=== PATIENT | female | born 1960 | race Caucasian/White ===

== ENCOUNTER 2019-10-02 09:29 | Inpatient (IN) | payer MEDICARE ==
[~2019-10-02] VITALS: Ht 177.8 cm; Wt 95.0 kg
[~2019-10-02 09:29] MED LIST: CLON0.1T22 PO; HYDR25TA6 PO; LORA-446 PO; LOSA100T14 PO; PANT40TA3 PO; PROM12.56; SUCR1TAB33
--- NOTE | 2019-10-02 09:47 | NUR ---
PT BIB EMS FROM [place]. PT WITH C/O N/V X4 DAYS RUQ ABD PAIN 11/17. HX OF AUTOIMMUNE LIVER DISEASE, CARLOS JAZZY TEAR 2008. PT STATES SHE HAD A CT AT [facility] AND IT SHOWED "LIVER ISSUES" PT TO BP, CONT PULSE OX. BP ELEVATED AT TIME OF ARRIVAL 181/111, PT RETCHING, WILL RECHECK ER MD AWARE.
[2019-10-02] MEDS ORDERED: HYDROmorphone 1 MG/ML, 1ML INJ ONE ×2 (09:55→11:44)
[2019-10-02] MEDS ORDERED: LORazepam 2 MG/ML, 1ML ONE (09:56)
[2019-10-02] MEDS ORDERED: SODIUM CHLORIDE 0.9% 1,000ML IVBOLUS ONE (10:00)
[2019-10-02] MEDS ORDERED: SODIUM CHLORIDE FLUSH 10ML SYR IVF ONE (10:00)
[2019-10-02] MEDS ORDERED: LORazepam 2 MG/ML, 1ML IV ONE (10:00)
[2019-10-02] MEDS: HYDROmorphone 2 MG/ML, 1ML IVPush PRN ×4 (10:01→21:55)
[2019-10-02] MEDS ORDERED: PANTOPRAZOLE 80 MG in SODIUM CHLORIDE 0.9% 50 ML IVPB ONE (10:21)
[2019-10-02] MEDS ORDERED: PANTOPRAZOLE 80 MG in SODIUM CHLORIDE 0.9% 100 ML IV SCH (10:21)
[2019-10-02 10:27] LABS: BASOPHILS # (AUTO) 0.01 x10^3/uL (0-0.1); BASOPHILS % (AUTO) 0 % (0-1); EOSINOPHILS # (AUTO) 0.01 x10^3/uL (0-0.4); EOSINOPHILS % (AUTO) 0 % (1-7); LYMPHOCYTES % (AUTO) 23 % (22-44); MD NO; MEAN CORPUSCULAR HEMOGLOBIN 23.6 pg (27.0-34.8); MEAN CORPUSCULAR HGB CONC 31.2 g/dL (32.4-35.8); MEAN PLATELET VOLUME 8.4 fL (7.4-10.4); MONOCYTES # (AUTO) 0.74 x10^3/uL (0.2-0.8); MONOCYTES % (AUTO) 13 % (2-9); NEUTROPHILS % (AUTO) 64 % (42-75); PLATELET COUNT 214 x10^3/uL (130-400); RED BLOOD COUNT 4.03 x10^6/uL (3.82-5.3); RED CELL DISTRIBUTION WIDTH 16.6 % (9.6-15.2)
[2019-10-02 10:28] LABS: HCT (SEDRATE) 30.7 % (34.6-47.8)
[2019-10-02 10:30] LABS: INTERNATIONAL NORMALIZED RATIO 1.02 (0.93-1.1); PROTHROMBIN TIME 10.8 Seconds (9.6-11.5)
[2019-10-02] MEDS ORDERED: DIPHENHYDRAMINE 50 MG/ML, 1ML IVPush ONE (10:30)
[2019-10-02] MEDS ORDERED: methylPREDNISolone SOD SUCC 125 MG/2 ML IVPush ONE (10:30)
[2019-10-02] MEDS ORDERED: DIPHENHYDRAMINE 50 MG/ML, 1ML ONE (10:32)
[2019-10-02] MEDS ORDERED: methylPREDNISolone SOD SUCC 125 MG/2 ML ONE (10:32)
--- NOTE | 2019-10-02 10:32 | NUR ---
PT PREMEDICATED FOR CTA ABD. CT CALLED TO UPDATE.
[2019-10-02 10:34] LABS: ALANINE AMINOTRANSFERASE 45 U/L (12-78); ALBUMIN 3.5 g/dL (3.4-5.0); ANION GAP 7 mmol/L (5-15); C-REACTIVE PROTEIN, QUANT 0.09 mg/dL (0.02-0.49); CALCIUM 8.6 mg/dL (8.5-10.1); CHLORIDE 110 mmol/L (98-107); CREATININE 0.72 mg/dL (0.55-1.02)
[2019-10-02 10:37] LABS: ALKALINE PHOSPHATASE 141 U/L (45-117); BILIRUBIN,TOTAL 0.3 mg/dL (0.2-1.0); TOTAL PROTEIN 7.1 g/dL (6.4-8.2)
[2019-10-02] MEDS ORDERED: OMNIPAQUE 350 MG/ML, 100ML BOTTLE ONE (10:58)
[2019-10-02 11:42] LABS: % IRON SATURATION 4 % (20-55); IRON LEVEL 22 mcg/dL (50-170); TOTAL IRON BINDING CAPACITY 495 mcg/dL (250-450)
[2019-10-02 13:10] VITALS: BP 168/114
[2019-10-02] MEDS ORDERED: HYDROmorphone 2 MG/ML, 1ML IV ONE (14:30)
[2019-10-02] MEDS ORDERED: PROMETHAZINE 25 MG/ML, 1ML IM ONE (14:30)
[2019-10-02] MEDS ORDERED: hydrALAzine 20 MG/ML, 1ML IVPush PRN (15:00)
[2019-10-02] MEDS ORDERED: POLYETHYLENE GLYCOL 17 GM PACKET PO PRN (15:00)
[2019-10-02] MEDS ORDERED: ZOLPIDEM 5MG TABLET PO PRN (15:00)
[2019-10-02] MEDS ORDERED: PROMETHAZINE 25 MG/ML, 1ML IM PRN (15:00)
[2019-10-02] MEDS ORDERED: BISACODYL 10 MG SUPP PR PRN (15:00)
[2019-10-02] MEDS ORDERED: ACETAMINOPHEN 325 MG TABLET PO PRN (15:00)
[2019-10-02] MEDS: PANTOPRAZOLE 40 MG IV IVPush SCH (16:43)
[2019-10-02] MEDS: LORazepam 2 MG/ML, 1ML IVPush PRN ×2 (16:43→20:56)
[2019-10-02] MEDS: D5%-LR+KCL 20MEQ 1,000 ML IV SCH (16:48)
[2019-10-02] MEDS: CEFTRIAXONE PMX 1GM/50ML 50 ML IV SCH (16:59)
[2019-10-02 18:50] VITALS: BP 156/102
[2019-10-02 22:05] VITALS: BP 186/112
[2019-10-02] MEDS: LABETALOL 5MG/ML, 20ML IVPush PRN (22:13)
[2019-10-02 22:42] VITALS: BP 190/100
[2019-10-02] MEDS ORDERED: LABETALOL 5MG/ML, 20ML IVPush ONE (23:00)
[2019-10-03] MEDS: HYDROmorphone 2 MG/ML, 1ML IVPush PRN ×6 (00:58→21:17)
[2019-10-03 00:59] VITALS: BP 162/93
[2019-10-03] MEDS: LORazepam 2 MG/ML, 1ML IVPush PRN ×7 (02:01→21:57)
[2019-10-03] MEDS: D5%-LR+KCL 20MEQ 1,000 ML IV SCH ×3 (02:52→19:40)
[2019-10-03 03:23] LABS: BASOPHILS # (AUTO) 0.01 x10^3/uL (0-0.1); BASOPHILS % (AUTO) 0 % (0-1); EOSINOPHILS % (AUTO) 0 % (1-7); LYMPHOCYTES # (AUTO) 1.06 x10^3/uL (1-3.4); LYMPHOCYTES % (AUTO) 16 % (22-44); MD NO; MEAN CORPUSCULAR HEMOGLOBIN 23.2 pg (27.0-34.8); MEAN CORPUSCULAR HGB CONC 30.6 g/dL (32.4-35.8); MEAN PLATELET VOLUME 8.7 fL (7.4-10.4); MONOCYTES # (AUTO) 0.79 x10^3/uL (0.2-0.8); MONOCYTES % (AUTO) 12 % (2-9); NEUTROPHILS # (AUTO) 4.92 x10^3/uL (1.8-6.8); NEUTROPHILS % (AUTO) 73 % (42-75); PLATELET COUNT 214 x10^3/uL (130-400); RED BLOOD COUNT 3.81 x10^6/uL (3.82-5.3); RED CELL DISTRIBUTION WIDTH 17.3 % (9.6-15.2)
[2019-10-03 03:26] LABS: ALBUMIN 3.1 g/dL (3.4-5.0); ANION GAP 9 mmol/L (5-15); CALCIUM 8.2 mg/dL (8.5-10.1); CHLORIDE 107 mmol/L (98-107)
[2019-10-03 03:34] LABS: ALANINE AMINOTRANSFERASE 40 U/L (12-78); ALKALINE PHOSPHATASE 113 U/L (45-117); BILIRUBIN,TOTAL 0.2 mg/dL (0.2-1.0); CHOL/HDL RATIO 2.9; CHOLESTEROL, TOTAL 185 mg/dL (140-239); CREATININE 0.89 mg/dL (0.55-1.02); HDL CHOL % 34 % (28-40); HDL CHOLESTEROL (DIRECT) 63 mg/dL (40-60); LDL CHOLESTEROL,CALCULATED 106 mg/dL (54-169); LDL/HDL RATIO 1.7 (0.5-3.0); TOTAL PROTEIN 6.5 g/dL (6.4-8.2); TRIGLYCERIDES 80 mg/dL (50-200); VLDL CHOLESTEROL 16 mg/dL (0-25)
[2019-10-03] MEDS: PANTOPRAZOLE 40 MG IV IVPush SCH ×2 (05:07→14:57)
[2019-10-03] MEDS: LABETALOL 5MG/ML, 20ML IVPush PRN ×2 (07:48→20:26)
[2019-10-03 08:30] VITALS: BP 167/111
[2019-10-03] MEDS ORDERED: CHLORHEXIDINE 15 ML UDC ONE (10:22)
[2019-10-03] MEDS ORDERED: PROPOFOL 10 MG/ML, 20ML ONE (10:29)
[2019-10-03] MEDS: LABETALOL 5MG/ML, 20ML IV PRN ×4 (10:45→11:31)
[2019-10-03] MEDS ORDERED: hydrALAzine 20 MG/ML, 1ML ONE (10:53)
[2019-10-03] MEDS ORDERED: hydrALAzine 20 MG/ML, 1ML IV PRN (11:00)
[2019-10-03] MEDS ORDERED: PROMETHAZINE 25 MG/ML, 1ML IVPush PRN (11:00)
[2019-10-03] MEDS ORDERED: LORazepam 2 MG/ML, 1ML ONE (11:03)
[2019-10-03] MEDS ORDERED: HYDROmorphone 1 MG/ML, 1ML INJ ONE ×3 (11:03→11:44)
[2019-10-03] MEDS: HYDROmorphone 1 MG/ML, 1ML INJ IVPush PRN ×4 (11:05→11:38)
[2019-10-03] MEDS ORDERED: PROMETHAZINE 25 MG/ML, 1ML ONE (11:15)
[2019-10-03] MEDS ORDERED: ENALAPRILAT 1.25 MG/ML, 2ML ONE (11:40)
[2019-10-03] MEDS ORDERED: ENALAPRILAT 1.25 MG/ML, 2ML IV PRN (12:00)
[2019-10-03] MEDS ORDERED: IRON DEXTRAN IV PER PHARMACY IV ONE (15:30)
[2019-10-03] MEDS: CEFTRIAXONE PMX 1GM/50ML 50 ML IV SCH (15:33)
[2019-10-03] MEDS ORDERED: IRON DEXTRAN COMPLEX 25 MG in SODIUM CHLORIDE 0.9% 50 ML IV ONE (16:00)
[2019-10-03] MEDS ORDERED: IRON DEXTRAN COMPLEX 1,500 MG in SODIUM CHLORIDE 0.9% 250 ML IV ONE (16:00)
[2019-10-03 16:37] VITALS: BP 175/110
[2019-10-03] MEDS ORDERED: EPINEPHRINE 1 MG/ML, 1ML SQ PRN (17:00)
[2019-10-03 18:47] LABS: MICROSCOPIC INDICATED
[2019-10-03 20:17] VITALS: BP 164/101
[2019-10-03 21:20] VITALS: BP 158/97
[2019-10-04] VITALS: BP 172/102
[2019-10-04] MEDS: LABETALOL 5MG/ML, 20ML IVPush PRN ×5 (00:06→20:38)
[2019-10-04] MEDS: HYDROmorphone 2 MG/ML, 1ML IVPush PRN ×6 (00:12→15:54)
[2019-10-04] MEDS: LORazepam 2 MG/ML, 1ML IVPush PRN ×2 (02:21→10:51)
[2019-10-04 03:12] LABS: BASOPHILS # (AUTO) 0.02 x10^3/uL (0-0.1); BASOPHILS % (AUTO) 0 % (0-1); EOSINOPHILS # (AUTO) 0.01 x10^3/uL (0-0.4); EOSINOPHILS % (AUTO) 0 % (1-7); LYMPHOCYTES # (AUTO) 1.69 x10^3/uL (1-3.4); LYMPHOCYTES % (AUTO) 25 % (22-44); MD NO; MEAN CORPUSCULAR HEMOGLOBIN 23.9 pg (27.0-34.8); MEAN CORPUSCULAR HGB CONC 31.6 g/dL (32.4-35.8); MEAN PLATELET VOLUME 8.5 fL (7.4-10.4); MONOCYTES # (AUTO) 0.64 x10^3/uL (0.2-0.8); MONOCYTES % (AUTO) 9 % (2-9); NEUTROPHILS % (AUTO) 65 % (42-75); PLATELET COUNT 193 x10^3/uL (130-400); RED BLOOD COUNT 3.91 x10^6/uL (3.82-5.3); RED CELL DISTRIBUTION WIDTH 17.8 % (9.6-15.2)
[2019-10-04 03:23] LABS: ANION GAP 9 mmol/L (5-15); CALCIUM 7.5 mg/dL (8.5-10.1); CHLORIDE 109 mmol/L (98-107); CREATININE 1.04 mg/dL (0.55-1.02)
[2019-10-04] MEDS: D5%-LR+KCL 20MEQ 1,000 ML IV SCH (03:26)
[2019-10-04 07:27] VITALS: BP 166/113
[2019-10-04] MEDS: PANTOPRAZOLE 40MG TABLET PO SCH ×2 (08:49→18:02)
[2019-10-04] MEDS ORDERED: POTASSIUM CHLORIDE 20 MEQ TAB.ER.PRT PO ONE (10:00)
[2019-10-04] MEDS ORDERED: POTASSIUM CHLORIDE 40 MEQ in SODIUM CHLORIDE 0.9% 500 ML IV ONE (13:00)
[2019-10-04 14:15] VITALS: BP 181/133
[2019-10-04 15:03] VITALS: BP 183/135
[2019-10-04 16:25] VITALS: BP 177/119
[2019-10-04] MEDS: CEFTRIAXONE PMX 1GM/50ML 50 ML IV SCH (17:22)
[2019-10-04] MEDS: HYDROmorphone 2MG TABLET PO PRN ×2 (19:35→23:24)
[2019-10-04 20:51] VITALS: BP 152/95
[2019-10-05] MEDS: LORazepam 1MG TABLET PO PRN ×2 (04:29→10:15)
[2019-10-05] MEDS: HYDROmorphone 2MG TABLET PO PRN ×2 (04:29→10:16)
[2019-10-05 04:30] VITALS: BP 183/135
[2019-10-05] MEDS: LABETALOL 5MG/ML, 20ML IVPush PRN (04:32)
[2019-10-05 05:31] LABS: ANION GAP 8 mmol/L (5-15); CALCIUM 8.6 mg/dL (8.5-10.1); CHLORIDE 105 mmol/L (98-107)
[2019-10-05 05:32] LABS: CREATININE 0.74 mg/dL (0.55-1.02)
[2019-10-05 05:43] LABS: MEAN CORPUSCULAR HEMOGLOBIN 23.9 pg (27.0-34.8); MEAN CORPUSCULAR HGB CONC 31.6 g/dL (32.4-35.8); MEAN PLATELET VOLUME 8.6 fL (7.4-10.4); PLATELET COUNT 236 x10^3/uL (130-400); RED CELL DISTRIBUTION WIDTH 17.5 % (9.6-15.2)
[2019-10-05 06:15] LABS: BASOPHILS # (AUTO) 0.06 x10^3/uL (0-0.1); BASOPHILS % (AUTO) 1 % (0-1); EOSINOPHILS # (AUTO) 0.18 x10^3/uL (0-0.4); EOSINOPHILS % (AUTO) 4 % (1-7); LYMPHOCYTES # (AUTO) 0.88 x10^3/uL (1-3.4); LYMPHOCYTES % (AUTO) 17 % (22-44); MD SCAN; MONOCYTES # (AUTO) 0.55 x10^3/uL (0.2-0.8); MONOCYTES % (AUTO) 11 % (2-9); NEUTROPHILS # (AUTO) 3.44 x10^3/uL (1.8-6.8); NEUTROPHILS % (AUTO) 67 % (42-75)
[2019-10-05 07:28] VITALS: BP 152/81
[2019-10-05] MEDS: PANTOPRAZOLE 40MG TABLET PO SCH (10:15)
[2019-10-05] MEDS ORDERED: HYDROmorphone 2MG TABLET PO PRN (12:30)
[2019-10-05] MEDS ORDERED: LORazepam 1MG TABLET PO PRN (12:30)
[2019-10-05 12:53] LABS: HCT (SEDRATE) 33.9 % (34.6-47.8)
[2019-10-05] MEDS: CEFTRIAXONE PMX 1GM/50ML 50 ML IV SCH (13:00)
[2019-10-05 13:05] LABS: ALBUMIN 3.5 g/dL (3.4-5.0); C-REACTIVE PROTEIN, QUANT 0.66 mg/dL (0.02-0.49)
[2019-10-05 13:10] LABS: BILIRUBIN, DIRECT 0.1 mg/dL (0.1-0.2); BILIRUBIN,INDIRECT 0.4 mg/dL (0.0-2.0); BILIRUBIN,TOTAL 0.5 mg/dL (0.2-1.0); TOTAL PROTEIN 7.2 g/dL (6.4-8.2)
== END 2019-10-05 14:33 | disposition left against medical advice (07) | DRG 381 ==
LOC: ED 11:26 → EDIP 12:11 → 3N 12:45
PROVIDERS: ADMIT Internal Medicine; ATTEND Hospitalist
PROC: 0DB68ZX Excision of Stomach, Via Natural or Artificial Opening Endoscopic, Diagnostic (ICD-10-PCS; principal; 2019-10-03 09:30)
DX: K22.11 Ulcer of esophagus with bleeding (principal); N39.0 Urinary tract infection, site not specified; K29.71 Gastritis, unspecified, with bleeding; K74.3 Primary biliary cirrhosis; E61.1 Iron deficiency; D64.9 Anemia, unspecified; E87.6 Hypokalemia; I10 Essential (primary) hypertension; Z53.29 Procedure and treatment not carried out because of patient's decision for other reasons; Z88.5 Allergy status to narcotic agent; Z88.0 Allergy status to penicillin; Z88.8 Allergy status to other drugs, medicaments and biological substances; Z91.041 Radiographic dye allergy status; Z20.828 Contact with and (suspected) exposure to other viral communicable diseases; E78.5 Hyperlipidemia, unspecified; G89.29 Other chronic pain; K21.9 Gastro-esophageal reflux disease without esophagitis; K57.30 Diverticulosis of large intestine without perforation or abscess without bleeding; Z80.1 Family history of malignant neoplasm of trachea, bronchus and lung; Z80.3 Family history of malignant neoplasm of breast; Z82.5 Family history of asthma and other chronic lower respiratory diseases; Z87.11 Personal history of peptic ulcer disease; Z87.19 Personal history of other diseases of the digestive system; Z90.49 Acquired absence of other specified parts of digestive tract
CPT/HCPCS: 36415; 74174; 80048; 80053; 80061; 80076; 81001; 82728; 83540; 83550; 83605; 83690; 83735; 84100; 84443; 85014; 85018; 85025; 85610; 85651; 86140; 86850; 86900; 87086; 87635; 88305; 96361; 96365; G0378; J0696; J1170; J1750; J2550; J2704; J3480; Q9967; C9113; J1200; J2060; J2930; J7030; J7040; J7050

== ENCOUNTER 2019-10-29 22:57 | Emergency (ER) | payer MEDICARE ==
--- NOTE | 2019-10-29 23:09 | NUR ---
Patient BIB ambulance c/o RUQ abd pain and N/V x2 days. Vomitus is blood-tinged. Patient has a recent hx of Neha Munguia tear which she states is healing. Patient is in NAD. Respirations even and unlabored.
[2019-10-29] MEDS ORDERED: SODIUM CHLORIDE 0.9% 1,000ML IVBOLUS ONE (23:30)
[2019-10-29] MEDS ORDERED: PANTOPRAZOLE 40 MG IV IVPush ONE (23:30)
[2019-10-29] MEDS ORDERED: PROMETHAZINE 25 MG/ML, 1ML IM ONE (23:30)
[2019-10-29] MEDS ORDERED: PROMETHAZINE 25 MG/ML, 1ML ONE (23:42)
[2019-10-29] MEDS ORDERED: HYDROmorphone 1 MG/ML, 1ML INJ ONE (23:43)
[2019-10-30] MEDS: HYDROmorphone 2 MG/ML, 1ML IVPush PRN ×2 (00:09→01:26)
[2019-10-30] MEDS ORDERED: PANTOPRAZOLE 40 MG IV ONE (00:13)
[2019-10-30 00:35] LABS: ALANINE AMINOTRANSFERASE 132 U/L (12-78); ALBUMIN 3.5 g/dL (3.4-5.0); ANION GAP 7 mmol/L (5-15); CALCIUM 8.8 mg/dL (8.5-10.1); CHLORIDE 109 mmol/L (98-107); CREATININE 0.85 mg/dL (0.55-1.02)
[2019-10-30 00:37] LABS: ALKALINE PHOSPHATASE 175 U/L (45-117); BILIRUBIN,TOTAL 0.4 mg/dL (0.2-1.0)
[2019-10-30 00:56] LABS: MEAN CORPUSCULAR HEMOGLOBIN 26.7 pg (27.0-34.8); MEAN CORPUSCULAR HGB CONC 31.6 g/dL (32.4-35.8); MEAN CORPUSCULAR VOLUME 84.4 fL (80-100); MEAN PLATELET VOLUME 8.1 fL (7.4-10.4); PLATELET COUNT 167 x10^3/uL (130-400); RED CELL DISTRIBUTION WIDTH 25.5 % (9.6-15.2)
[2019-10-30] MEDS ORDERED: HYDROmorphone 1 MG/ML, 1ML INJ ONE ×2 (01:21→03:10)
[2019-10-30 01:51] LABS: BASOPHILS # (AUTO) 0.01 x10^3/uL (0-0.1); BASOPHILS % (AUTO) 0 % (0-1); EOSINOPHILS # (AUTO) 0.02 x10^3/uL (0-0.4); EOSINOPHILS % (AUTO) 1 % (1-7); LYMPHOCYTES # (AUTO) 0.44 x10^3/uL (1-3.4); LYMPHOCYTES % (AUTO) 17 % (22-44); MD SCAN; MONOCYTES # (AUTO) 0.22 x10^3/uL (0.2-0.8); MONOCYTES % (AUTO) 8 % (2-9); NEUTROPHILS # (AUTO) 1.95 x10^3/uL (1.8-6.8); NEUTROPHILS % (AUTO) 74 % (42-75)
[2019-10-30 03:31] VITALS: BP 160/97
--- NOTE | 2019-10-30 03:39 | NUR ---
Discharge instructions given. All questions and concerns addressed. Patient ambulatory with a steady gait. Belongings with patient.
== END 2019-10-30 03:43 | disposition home or self-care (01) ==
LOC: ED 10-30 00:14
DX: R11.2 Nausea with vomiting, unspecified (principal); R10.11 Right upper quadrant pain; I10 Essential (primary) hypertension; Z90.49 Acquired absence of other specified parts of digestive tract; Z90.89 Acquired absence of other organs; Z97.10 Presence of artificial limb (complete) (partial), unspecified
CPT/HCPCS: 36415; 80053; 83690; 85025; 96361; 96372; 96374; 96375; 96376; 99285; C9113; J1170; J2550; J7030